=== PATIENT | female | born 1990 | race Hispanic/Latino ===

== ENCOUNTER 2022-03-18 04:20 | Emergency (ER) | payer OTHER ==
[~2022-03-18] VITALS: Ht 162.6 cm; Wt 136.1 kg
[2022-03-18] MEDS ORDERED: DOXYCYCLINE HY100 MG PO (04:29)
== END 2022-03-18 04:45 | disposition home or self-care (01) ==
LOC: ER 04:23
DX: L03.116 Cellulitis of left lower limb (principal); L03.115 Cellulitis of right lower limb; W55.03XA Scratched by cat, initial encounter; Y92.89 Other specified places as the place of occurrence of the external cause
CPT/HCPCS: 99282